=== PATIENT | female | born 1950 | race Caucasian/White ===

== ENCOUNTER → 2017-09-03 | Outpatient (CLI) | payer MEDICARE ==
[~2017-09-03] MED LIST: FEXOFENADINE H180 MG PO; IBUPROFEN; NASONEX17 GM; ZANTAC
--- NOTE | 2017-09-04 10:31 | Cardiology Report ---
DATE OF STUDY: September 03, 2017 DOPPLER SCAN OF RIGHT LEG VEINS The right leg veins were interrogated using the duplex scanning method. Veins were compressible. There was no definite deep venous thrombosis. CONCLUSIONS 1. No definite deep venous thrombosis of the right leg veins. 2. The left leg was not studied. Job#: [id number] RI cc:NAVEED BOSS MD
== END ==
LOC: RAD 10:29
PROVIDERS: ATTEND Family Medicine
DX: I80.3 Phlebitis and thrombophlebitis of lower extremities, unspecified (principal)
CPT/HCPCS: 93971